=== PATIENT | male | born 1970 | race Caucasian/White ===

== ENCOUNTER → 2017-06-30 | Outpatient (CLI) | payer BC ==
[2017-06-30 12:33] LABS: ALBUMIN 4.1 gm/dl (3.4-5.0); ALKALINE PHOSPHATASE 108 U/L (45-117); ALT/SGPT 90 U/L (12-78); AST/SGOT 37 U/L (15-37); BLOOD UREA NITROGEN 10 mg/dl (7-18); CALCIUM 9.1 mg/dl (8.5-10.1); CARBON DIOXIDE 24 mmol/L (21-32); CREATININE 1.11 mg/dl (0.60-1.40); GLUCOSE 304 mg/dl (70-99); POTASSIUM 4.2 mmol/L (3.5-5.1); SODIUM 133 mmol/L (136-145); TOTAL PROTEIN 7.7 gm/dl (6.4-8.2)
[2017-06-30 12:36] LABS: CHOLESTEROL 233 mg/dl (0-200); LDL CHOLESTEROL CALCULATED 136 mg/dl
[2017-06-30 12:51] LABS: HEMOGLOBIN A1C 11.5 % (4.5-5.6)
== END | disposition home or self-care (01) ==
LOC: C.LABBC 08:26
PROVIDERS: ATTEND Nurse Practitioner Adult Health
DX: E11.9 Type 2 diabetes mellitus without complications (principal); Z11.3 Encounter for screening for infections with a predominantly sexual mode of transmission

== ENCOUNTER → 2017-07-07 | Outpatient (CLI) | payer BC ==
--- NOTE | 2017-07-07 08:52 | DIAGNOSTIC IMAGING REPORT ---
ABDOMINAL ULTRASOUND, RIGHT UPPER QUADRANT HISTORY: Elevated ALT measurement. COMPARISON: None. FINDINGS: Hepatic echogenicity is significantly increased. There is slight coarsening of hepatic echotexture. Liver is mildly enlarged. No hepatic lesions are identified although sensitivity is diminished on this exam. The gallbladder is normal. There are no gallstones. No biliary ductal dilatation is present. The pancreas is largely obscured by overlying bowel gas. There is no right hydronephrosis. IMPRESSION: 1. Moderate to marked fatty infiltration of the liver. 2. Coarsening of hepatic echotexture with possible slight nodularity of the liver surface which raises the possibility of early cirrhosis. 3. No gallstones or biliary ductal dilatation. Electronically signed by: Hoang Dickinson M.D. 07/07/2017 8:50 AM Dictated Date/Time: 07/07/2017 8:48 AM
== END | disposition home or self-care (01) ==
LOC: C.ULTRBC 08:18
PROVIDERS: ATTEND Nurse Practitioner Adult Health
DX: R74.0 Nonspecific elevation of levels of transaminase and lactic acid dehydrogenase [LDH] (principal); K76.0 Fatty (change of) liver, not elsewhere classified

== ENCOUNTER → 2017-07-14 | Outpatient (CLI) | payer BC ==
[2017-07-14 11:07] LABS: BASO % 0.9 %; BASO ABS # 0.07 K/uL (0-0.2); EOS % 1.5 %; EOS ABS # 0.12 K/uL (0-0.5); HEMATOCRIT 46.4 % (42-52); HEMOGLOBIN 16.2 g/dL (14.0-18.0); IG# 0.05 K/uL (0.00-0.02); LYMPH % 26.7 %; LYMPH ABS # 2.14 K/uL (1.2-3.4); MEAN CELL VOLUME 85.3 fL (80-100); MEAN CORPUSCULAR HEMOGLOBIN 29.8 pg (25-34); MEAN CORPUSCULAR HGB CONC 34.9 g/dl (32-36); MEAN PLATELET VOLUME 10.2 fL (7.4-10.4); MONO % 6.5 %; MONO ABS # 0.52 K/uL (0.11-0.59); NEUT % 63.8 %; NEUT ABS # 5.13 K/uL (1.4-6.5); PLATELET COUNT 284 K/uL (130-400); RED CELL DISTRIBUTION WIDTH CV 12.8 % (11.5-14.5); RED CELL DISTRIBUTION WIDTH SD 39.6 fL (36.4-46.3); WHITE BLOOD COUNT 8.03 K/uL (4.8-10.8)
[2017-07-14 12:23] LABS: HEP C IGG 13 YRS+OLDER_RFLX NEG (NEG)
== END | disposition home or self-care (01) ==
LOC: C.LABBC 07:19
PROVIDERS: ATTEND Registered Nurse
DX: R93.2 Abnormal findings on diagnostic imaging of liver and biliary tract (principal)

== ENCOUNTER → 2017-07-21 | Outpatient (CLI) | payer BC ==
[~2017-07-21] MED LIST: OPTIRAY 320 IV PRN
--- NOTE | 2017-07-21 16:01 | DIAGNOSTIC IMAGING REPORT ---
(LIVER) ABDOMEN WITH CLINICAL HISTORY: 47 years-old Male presenting with FATTY Liver, abn ULTRASOUND. TECHNIQUE: Multidetector CT of the abdomen was performed after the administration of intravenous contrast. IV contrast: 119 mL of Optiray 320. A dose lowering technique was used consistent with the principles of ALARA (as low as reasonably achievable). COMPARISON: Ultrasound from 07/07/2017. CT DOSE (mGy.cm): The estimated cumulative dose is 1452.80 mGy.cm. FINDINGS: Compressor Mechanic topogram: Unremarkable. Lung bases: Lung bases clear. Normal heart size. No pericardial or pleural effusion. Liver: Normal morphology. Density suggestive of hepatic steatosis. No focal lesion. Patent hepatic vasculature.. Biliary: No intrahepatic or extrahepatic biliary ductal dilatation. Normal gallbladder. Pancreas: Normal. Spleen: Normal. Adrenal glands: Normal. Kidneys and ureters: Hypodensities in the kidneys cysts. No nephrolithiasis. No hydronephrosis. Proximal ureters normal. Bowel: Normal. No bowel obstruction. Peritoneal cavity: No free fluid or intraperitoneal gas. Lymph nodes: Few subcentimeter retroperitoneal and portacaval lymph nodes, possibly reactive. No pathologically enlarged lymph nodes in the abdomen by CT size criteria. Vasculature: Atherosclerosis of the normal caliber abdominal aorta. IVC patent. Abdominal wall: Normal. Musculoskeletal: Normal. IMPRESSION: 1. Findings suggestive of hepatic steatosis. No focal liver lesion. Electronically signed by: Ricco Diaz M.D. 07/21/2017 3:59 PM Dictated Date/Time: 07/21/2017 3:47 PM
== END | disposition home or self-care (01) ==
LOC: C.CTS 14:41
PROVIDERS: ATTEND Registered Nurse
DX: K76.0 Fatty (change of) liver, not elsewhere classified (principal); R74.0 Nonspecific elevation of levels of transaminase and lactic acid dehydrogenase [LDH]; R93.2 Abnormal findings on diagnostic imaging of liver and biliary tract

== ENCOUNTER → 2017-07-22 | Outpatient (CLI) | payer BC ==
--- NOTE | 2017-07-22 16:25 | DIAGNOSTIC IMAGING REPORT ---
L LOWER EXT NONJOINT WITHOUT CLINICAL HISTORY: 47 years-old Male presenting with LEFT FOOT PAIN. TECHNIQUE: Multisequence, multiplanar MR imaging of the left foot was performed without the use of intravenous contrast. IV contrast: None. COMPARISON: Plain radiographs from 07/15/2017. FINDINGS: Localizer images: Unremarkable. A marker is in place over the lateral foot at the level of the base of the fifth metatarsal. Subjacent subcutaneous edema along the lateral dorsum. Minimal edema of the extensor muscles. Trace laminar fluid also noted subjacent to the deep fascia (series 8 image 9). Small amount of fluid within the articulation of the cuboid and fifth metatarsal. Incidental note made of an ossicle at the base of the fifth metatarsal. This has an irregular transversely oriented articulation with the fifth metatarsal (series 9 image 17). This suggests a possible old avulsion fracture. Incidental synovial cyst noted at the level of the dorsum of the articulation of the cuboid with the lateral cuneiform and bases of the third and fourth metacarpals. Increased signal intensity of the peroneus longus tendon with trace fluid in the tendon sheath as the tendon courses posterior to the calcaneus. This suggests tenosynovitis or chronic degenerative change. IMPRESSION: 1. Subcutaneous edema and laminar fluid deep to the deep fascia along the extensor musculature at the site of clinical concern. 2. Synovial cyst at the midfoot-forefoot junction at the bases of the third and fourth metatarsals. This may be degenerative in etiology. 3. Findings suggest tenosynovitis or tendinosis of the peroneus longus tendon. 4. Possible old avulsion injury of the base of the fifth metatarsal. Electronically signed by: Ricco Diaz M.D. 07/22/2017 4:24 PM Dictated Date/Time: 07/22/2017 3:56 PM
== END | disposition home or self-care (01) ==
LOC: C.MRIBC 14:48
PROVIDERS: ATTEND Orthopaedic Surgery
DX: M79.672 Pain in left foot (principal); R60.9 Edema, unspecified; M71.372 Other bursal cyst, left ankle and foot

== ENCOUNTER → 2017-08-12 | Outpatient (CLI) | payer BC ==
--- NOTE | 2017-08-12 12:25 | DIAGNOSTIC IMAGING REPORT ---
TESTICULAR ULTRASOUND HISTORY: SCROTAL MASS COMPARISON: None. FINDINGS: Right testis: 4.5 x 3.2 x 2.4 cm. There are no intratesticular masses. Normal color flow. No significant hydrocele. The epididymis is unremarkable. Left testis: 4.1 x 3.3 x 2.6 cm. There are no intratesticular masses. Normal color flow. No significant hydrocele. The epididymis is unremarkable. IMPRESSION: Normal testicular ultrasound. Electronically signed by: Carlos Weaver M.D. 08/12/2017 12:24 PM Dictated Date/Time: 08/12/2017 12:22 PM
== END | disposition home or self-care (01) ==
LOC: C.ULTR 11:53
PROVIDERS: ATTEND Urology
DX: N50.9 Disorder of male genital organs, unspecified (principal)

== ENCOUNTER → 2017-10-08 | Outpatient (CLI) | payer BC ==
[~2017-10-08] MED LIST changes: +EMPA1TAB3 PO; +GLIM4TAB2 PO; +LEVO5TAB7 PO; +LIRA18IN SQ; +MELO7.5T5 PO; -OPTIRAY 320 IV PRN; +VITBC PO
--- NOTE | 2017-11-05 11:16 | CODING QUERY NO DIAGNOSIS ---
TREATMENT RENDERED WITHOUT A DIAGNOSIS To promote full compliance with coding requirements relating to patient care, physician participation is requested in all cases of dealer accounts investigator uncertainty. Please assist us with providing a diagnosis/symptom for the test(s) below: A diagnosis/symptom was not documented on your Order. A valid diagnosis/symptom is required to bill all insurances. Please remember that we are unable to code a diagnosis of rule out, probable, possible, questionable, or suspected. Tests that require a diagnosis: DOS: 10/08/17 * VAS DEFERENS VASECTOMY DIAGNOSIS: Provider Signature: Date: Thank you Mariana Werner [employer] Information Management Once completed, please kindly fax back to [phone] For questions please call [phone]
== END | disposition home or self-care (01) ==
LOC: C.PATHSPEC 15:05
PROVIDERS: ATTEND Urology
DX: Z30.2 Encounter for sterilization (principal)

== ENCOUNTER → 2017-11-04 | Outpatient (CLI) | payer BC ==
--- NOTE | 2017-11-04 15:55 | DIAGNOSTIC IMAGING REPORT ---
L-SPINE MIN 4 VIEWS ROUTINE CLINICAL HISTORY: Low back pain COMPARISON STUDY: No previous studies for comparison. FINDINGS: There is a minor spinal curvature convex to the left. No acute fractures are visualized. There is minor L1 wedging. This is felt to be old. IMPRESSION: 1. No acute fractures or traumatic subluxations identified 2. Mild wedging of the L1 vertebral body. This is felt to be old Electronically signed by: Chip Alvarez M.D. 11/04/2017 3:54 PM Dictated Date/Time: 11/04/2017 3:53 PM
--- NOTE | 2017-11-04 16:00 | DIAGNOSTIC IMAGING REPORT ---
CERVICAL SPINE 6 VIEWS CLINICAL HISTORY: Neck pain COMPARISON STUDY: No previous studies for comparison. FINDINGS: The prevertebral soft tissues are normal. No fractures or subluxations are visualized. There are minor degenerative changes. There are no erosive or destructive changes. IMPRESSION: 1. Mild degenerative change 2. No fractures, subluxations, or destructive lesions are visualized. Electronically signed by: Chip Alvarez M.D. 11/04/2017 3:59 PM Dictated Date/Time: 11/04/2017 3:58 PM
--- NOTE | 2017-11-04 16:03 | DIAGNOSTIC IMAGING REPORT ---
THORACIC SPINE 3 VIEWS ROUTINE CLINICAL HISTORY: Thoracic spine pain COMPARISON STUDY: No previous studies for comparison. FINDINGS: The paraspinal line is not significantly displaced. There are multilevel degenerative changes. No fractures subluxations or destructive lesions are visualized. IMPRESSION: Mild multilevel degenerative change. No fractures subluxations or destructive lesions are visualized on conventional radiographic imaging Electronically signed by: Chip Alvarez M.D. 11/04/2017 4:02 PM Dictated Date/Time: 11/04/2017 4:01 PM
== END ==
LOC: C.RADBC 14:48
PROVIDERS: ATTEND Physician Assistant Medical
DX: M54.2 Cervicalgia (principal); M54.6 Pain in thoracic spine; M54.5 Low back pain